=== PATIENT | female | born 1970 | race Caucasian/White ===

== ENCOUNTER 2018-11-20 08:58 | Emergency (ER) | payer MEDICARE, MEDICAID, SELFPAY ==
--- NOTE | 2018-11-20 09:06 | ED_ITS ---
HPI - URI/Sore Throat General Chief Complaint: Upper Respiratory Symptoms Stated Complaint: COUGHING Time Seen by Provider: 11/20/18 09:00 Source: patient Mode of arrival: ambulatory Limitations: no limitations History of Present Illness HPI Narrative: Patient is a 48-year-old female here for evaluation of at least 2 weeks if not months of a productive cough. Has had subjective fevers. Occasional wheezing. No underlying lung pathology. Has been taking over-the- counter cough and cold preparations and decongestants without any improvement. Has seen her primary doctor and has been diagnosed with bronchitis. Here because her symptoms have not improved. Related Data Home Medications Medication Instructions Recorded Confirmed sertraline [Zoloft] 150 mg PO Q DAY #0 08/19/11 albuterol sulfate [Ventolin HFA] 2 puff IH TIDP #0 03/20/13 [STELAZINE] 5 mg PO HS #0 06/24/13 atorvastatin [Lipitor] 40 mg PO HS #0 tab 06/24/13 Previous Rx's Medication Instructions Recorded azithromycin See Label Instructions .ROUTE 11/20/18 .COMPLEX #6 tab benzonatate [Tessalon Perles] 100 mg PO QID PRN #20 cap 11/20/18 Allergies Allergy/AdvReac Type Severity Reaction Status Date / Time From HALDOL AdvReac Severe BECOMES Uncoded 02/03/18 13:10 COMBATIVE Amantadine AdvReac Mild SEVERE DRY Uncoded 02/03/18 13:10 MOUTH Review of Systems Constitutional Reports fever(s) and Denies headache(s) ENT Ears, Nose, Mouth, and Throat: Denies vertigo, Denies dizziness and Denies headache(s) Cardiovascular Denies chest pain and Reports dyspnea Respiratory Reports cough, Reports pain with cough, Reports dyspnea and Reports wheezing Gastrointestinal Gastrointestinal: Denies abdominal pain, Denies nausea and Denies vomiting Genitourinary Denies dysuria Musculoskeletal Denies myalgias and Denies arthralgias Integumentary/Breasts Denies rash Neurologic Denies vertigo, Denies dizziness and Denies headache(s) Hematologic/Lymphatic Comments: Not on anticoagulation Allergic/Immunologic Reports wheezing PFSH Medical History Diabetes (Acute) Social History marital status: lives independently: Yes Exam Initial Vital Signs Initial Vital Signs: Vital Signs Temperature 98.3 F 11/20/18 09:13 Pulse Rate 84 11/20/18 09:13 Respiratory Rate 18 11/20/18 09:13 Blood Pressure 142/79 H 11/20/18 09:13 Pulse Oximetry 98 11/20/18 09:13 Const General: cooperative, healthy appearing, well developed, well groomed and No acute distress Orientation: alert, awake and oriented x3 HENMT Head: normal to inspection and normocephalic Resp Effort & Inspection: normal respiratory effort Auscultation: rhonchi upper bilaterally and lower bilaterally Cardio Rate: regular rate Rhythm: regular rhythm Skin Lesions: no lesions Rashes: no rashes Neuro General: alert, awake and oriented x3 Cognition: normal cognition Speech: speech normal Extrem General: normal to inspection and capillary refill normal Psych Appearance: grossly normal and well kempt Course Orders Ordered: ED Orders 11/20/18 09:25 XR chest 2V Stat Vital Signs - 8 hr 11/20/18 09:13 Temperature 98.3 F Pulse Rate 84 Respiratory Rate 18 Blood Pressure 142/79 H Pulse Oximetry 98 [facility] - URI/Sore Throat Imaging Data Chest x-ray: Radiologist's impression: PROCEDURE: XR CHEST 2V INDICATIONS: cough and fever TECHNIQUE: 2 views of the chest were acquired. COMPARISON: 08/04/2013. FINDINGS: Surgical changes and devices: None. Lungs and pleura: No pleural effusions or pneumothorax. Lungs are clear. Mediastinum: Mediastinal contours are normal. Heart size is normal. Bones and chest wall: No suspicious bony abnormalities. Soft tissues appear unremarkable. IMPRESSION: Chest without acute cardiopulmonary abnormalities. Dictated by: Rex Zavala M.D. on 11/20/2018 at 10:27 Approved by: Rex Zavala M.D. on 11/20/2018 at 10:27 [facility] Narrative Medical decision making narrative: No definitive pneumonia on the chest x-ray. She is afebrile. I have low concern for the flu. She has been on some decongestants off and on for the past month but nothing consistently. Had a long discussion with the patient regarding her symptoms. Informed her that she should be taking a decongestant along with a nasal steroid on a daily basis. Informed her that she can buy these [id number]. Also sent home with Jhonny Rothman. Will also send her home with a prescription for some antibiotics however I informed her that I highly recommended she start with the decongestants for the next several days if not a week and if her symptoms do not improve that she can take the antibiotics as directed. We discussed return precautions. She expressed understanding and agreement with plan. Discharge Plan Departure Patient Disposition: Home Clinical Impression: Cough, Upper respiratory infection Instructions: Cough (Alternative Therapy), Cough Activity Restrictions/Additional Instructions: I highly recommend that you start taking a decongestant such as Claritin or Steffanie or Zyrtec and also a nasal steroid such as Flonase for Nasonex. You can buy these medications over the counter. I recommend you take these on a daily basis for the next several days. If your symptoms worsen or do not improve then you can fill the prescription for the antibiotics and take them as directed. Call your primary care doctor for a follow-up. Return to the emergency department for any new or worsening symptoms Prescriptions: New azithromycin 250 mg tablet See Label Instructions .ROUTE .COMPLEX Qty: 6 RF: 0 benzonatate [Tessalon Perles] 100 mg capsule 100 mg PO QID PRN (Reason: cough) Qty: 20 RF: 0 No Action sertraline [Zoloft] 100 MG tablet 150 mg PO Q DAY Qty: 0 RF: 0 albuterol sulfate [Ventolin HFA] 90 MCG/PUFF HFA aerosol inhaler 2 puff IH TIDP Qty: 0 RF: 0 atorvastatin [Lipitor] 40 MG tablet 40 mg PO HS Qty: 0 RF: 0 [STELAZINE] 5 mg PO HS Qty: 0 RF: 0
[2018-11-20 09:13] VITALS: BP 142/79; PULSE 84; RESP 18; TEMP 36.8; O2SAT 98
--- NOTE | 2018-11-20 09:25 | DI.RAD.S_ITS ---
PROCEDURE: XR CHEST 2V INDICATIONS: cough and fever TECHNIQUE: 2 views of the chest were acquired. COMPARISON: 08/04/2013. FINDINGS: Surgical changes and devices: None. Lungs and pleura: No pleural effusions or pneumothorax. Lungs are clear. Mediastinum: Mediastinal contours are normal. Heart size is normal. Bones and chest wall: No suspicious bony abnormalities. Soft tissues appear unremarkable. IMPRESSION: Chest without acute cardiopulmonary abnormalities. Dictated by: Rex Zavala M.D. on 11/20/2018 at 10:27 Approved by: Rex Zavala M.D. on 11/20/2018 at 10:27
[2018-11-20 11:09] VITALS: BP 152/71; PULSE 75; RESP 19; O2SAT 100
== END 2018-11-20 11:09 | disposition home or self-care (01) ==
PROVIDERS: Emergency Provider Emergency Medicine; PCP Family Medicine
DX: R05 Cough (principal); J06.9 Acute upper respiratory infection, unspecified
CPT/HCPCS: 71046; 99282; 99283